=== PATIENT | female | born 1985 | race Caucasian/White ===

== ENCOUNTER 2016-07-19 21:48 | Emergency (ER) | payer BC ==
[2016-07-19 23:43] LABS: ABSOLUTE BASOPHILS # (AUTO) 0.1 10^3/uL (0.0-0.2); ABSOLUTE EOSINOPHILS # (AUTO) 0.8 10^3/uL (0.0-0.6); ABSOLUTE LYMPHOCYTES (AUTO) 3.3 10^3/uL (0.5-4.7); ABSOLUTE MONOCYTES (AUTO) 0.8 10^3/uL (0.1-1.4); BASOPHILS % (AUTO) 0.5 % (0-2); EOSINOPHILS % (AUTO) 6.2 % (0-6); HEMATOCRIT 33.2 % (36.0-47.0); HEMOGLOBIN 11.2 g/dL (12.0-15.5); HGB HCT DIFFERENCE 0.4; LYMPHOCYTES % (AUTO) 25.5 % (13-45); MEAN CORPUSCULAR HEMOGLOBIN 27.5 pg (27.0-33.4); MEAN CORPUSCULAR HGB CONC 33.8 g/dL (32.0-36.0); MEAN CORPUSCULAR VOLUME 81 fl (80-97); RED BLOOD COUNT 4.08 10^6/uL (3.72-5.28); RED CELL DISTRIBUTION WIDTH 14.3 % (11.5-14.0); SEGMENTED NEUTROPHILS % (AUTO) 61.8 % (42-78); WHITE BLOOD COUNT 12.9 10^3/uL (4.0-10.5)
[2016-07-19 23:47] LABS: APPEARANCE,URINE CLEAR; BILIRUBIN,URINE NEGATIVE (NEGATIVE); GLUCOSE, URINE NEGATIVE (NEGATIVE); KETONES,URINE NEGATIVE (NEGATIVE); LEUKOCYTE ESTERASE,URINE NEGATIVE (NEGATIVE); NITRITE,URINE NEGATIVE (NEGATIVE); PROTEIN,URINE NEGATIVE (NEGATIVE); URINE SPECIFIC GRAVITY 1.011; UROBILINOGEN,URINE NEGATIVE mg/dL (<2.0)
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
[2016-07-20 03:50] VITALS: BP 108/72
== END 2016-07-20 03:49 | disposition home or self-care (01) ==
LOC: ER 21:48
DX: O46.91 Antepartum hemorrhage, unspecified, first trimester (principal)
CPT/HCPCS: 99284; 96372; 86900; 86901; 36415; 86850; 84702; 85025; 81001; 76817; 93976; J2790

== ENCOUNTER → 2016-07-22 | Outpatient (CLI) | payer BC | LOC: LAB 10:43 | DX: O46.90 Antepartum hemorrhage, unspecified, unspecified trimester (principal) | CPT/HCPCS: 36415; 84702 ==

== ENCOUNTER → 2016-07-25 | Outpatient (CLI) | payer BC | LOC: OD 09:34 | PROVIDERS: ATTEND Obstetrics & Gynecology | DX: O02.1 Missed abortion (principal) | CPT/HCPCS: 36415; 84702 ==

== ENCOUNTER → 2016-07-27 | Outpatient (CLI) | payer BC | LOC: OD 08:49 | PROVIDERS: ATTEND Obstetrics & Gynecology | DX: O02.1 Missed abortion (principal) | CPT/HCPCS: 36415; 84702 ==

== ENCOUNTER 2017-01-14 21:07 | Emergency (ER) | payer OTHER, BC ==
[2017-01-14] MEDS ORDERED: ACETAMINOPHEN 325 MG TABLET PO ONE (21:55)
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
[2017-01-14 23:47] VITALS: BP 126/60
== END 2017-01-14 23:44 | disposition home or self-care (01) ==
LOC: ER 21:07
DX: O99.89 Other specified diseases and conditions complicating pregnancy, childbirth and the puerperium (principal); M25.532 Pain in left wrist; V49.40XA Driver injured in collision with unspecified motor vehicles in traffic accident, initial encounter; O99.513 Diseases of the respiratory system complicating pregnancy, third trimester; J45.909 Unspecified asthma, uncomplicated; Z3A.00 Weeks of gestation of pregnancy not specified
CPT/HCPCS: 99284

== ENCOUNTER 2017-01-14 23:50 | Outpatient (CLI) | payer OTHER, BC ==
[2017-01-15 00:28] LABS: APPEARANCE,URINE CLEAR; BILIRUBIN,URINE NEGATIVE (NEGATIVE); GLUCOSE, URINE NEGATIVE (NEGATIVE); KETONES,URINE NEGATIVE (NEGATIVE); LEUKOCYTE ESTERASE,URINE NEGATIVE (NEGATIVE); NITRITE,URINE NEGATIVE (NEGATIVE); PROTEIN,URINE NEGATIVE (NEGATIVE); URINE SPECIFIC GRAVITY 1.003; UROBILINOGEN,URINE NEGATIVE mg/dL (<2.0)
[2017-01-15 01:07] LABS: URINE BARBITURATES SCREEN NEGATIVE; URINE METHADONE SCREEN NEGATIVE; URINE OPIATES LOW NEGATIVE; URINE PHENCYCLIDINE SCREEN NEGATIVE
[2017-01-15 02:29] LABS: TOTAL RBC COUNT 2063; VOL OF FETOMATERNAL HEMORRHAGE 0 ML (0)
[2017-01-15 02:30] LABS: TYPE IN FILE? TYPE IN FILE
== END 2017-01-15 02:40 | disposition home or self-care (01) ==
LOC: LC 23:50
PROVIDERS: ATTEND Obstetrics & Gynecology
PROC: 4A1HXCZ Monitoring of Products of Conception, Cardiac Rate, External Approach (ICD-10-PCS; principal; 2017-01-14)
DX: Z36 Encounter for antenatal screening of mother (principal); Z3A.24 24 weeks gestation of pregnancy
CPT/HCPCS: 36415; 80307; 81001; 85460

== ENCOUNTER 2017-04-19 10:52 | Outpatient (CLI) | payer BC ==
[2017-04-19 11:31] LABS: APPEARANCE,URINE CLOUDY; BILIRUBIN,URINE NEGATIVE (NEGATIVE); GLUCOSE, URINE NEGATIVE (NEGATIVE); KETONES,URINE TRACE mg/dL (NEGATIVE); LEUKOCYTE ESTERASE,URINE SMALL (NEGATIVE); NITRITE,URINE NEGATIVE (NEGATIVE); PROTEIN,URINE 100 mg/dL (NEGATIVE); URINE SPECIFIC GRAVITY 1.025; UROBILINOGEN,URINE NEGATIVE mg/dL (<2.0)
[2017-04-19 11:38] LABS: AMNISURE (ROM) NEGATIVE (NEGATIVE)
[2017-04-19 11:48] LABS: URINE BARBITURATES SCREEN NEGATIVE; URINE METHADONE SCREEN NEGATIVE; URINE OPIATES LOW NEGATIVE; URINE PHENCYCLIDINE SCREEN NEGATIVE
--- NOTE | 2017-04-19 11:53 | Non Stress Test Report ---
Non Stress Test Datetime Report Generated by CPN: 04/19/2017 11:53 DEMOGRAPHIC EGA NST: 37.3 INDICATION Indication for Study: Other Indication for Study (NST) Other: Labor Check MONITORING Monitor Explained: Monitor Explained; Test Explained; Patient Verbalized Understanding Time on Monitor: 04/19/2017 11:08 Time off Monitor: 04/19/2017 11:43 NST Duration: 35 NST INTERVENTIONS NST Interventions: PO Hydration; Reposition Patient Physician Notified NST: Dr. Glenn BABY A: [id number] BABY A Movement : Present Contraction Frequency : 0 FHR Baseline : 135 Accelerations : 15X15 Decelerations : None Variability : Moderate 6-25bpm NST Review: Meets Criteria for Reactive NST NST Review and Verified By : TRIPP Boo Results: Reactive NST REPORT Report Trigger: Send Report
== END 2017-04-19 11:59 | disposition home or self-care (01) ==
LOC: LC 10:52
PROVIDERS: ATTEND Obstetrics & Gynecology
PROC: 4A1HXCZ Monitoring of Products of Conception, Cardiac Rate, External Approach (ICD-10-PCS; principal; 2017-04-19)
DX: O47.1 False labor at or after 37 completed weeks of gestation (principal); Z3A.37 37 weeks gestation of pregnancy
CPT/HCPCS: 59025; 80307; 81005; 84112

== ENCOUNTER 2017-04-29 20:52 | Outpatient (CLI) | payer BC ==
[2017-04-29 21:40] LABS: APPEARANCE,URINE CLEAR; BILIRUBIN,URINE NEGATIVE (NEGATIVE); GLUCOSE, URINE NEGATIVE (NEGATIVE); KETONES,URINE NEGATIVE (NEGATIVE); LEUKOCYTE ESTERASE,URINE NEGATIVE (NEGATIVE); NITRITE,URINE NEGATIVE (NEGATIVE); PROTEIN,URINE NEGATIVE (NEGATIVE); URINE SPECIFIC GRAVITY 1.009; UROBILINOGEN,URINE NEGATIVE mg/dL (<2.0)
[2017-04-29 21:45] LABS: AMNISURE (ROM) NEGATIVE (NEGATIVE)
[2017-04-29 21:55] LABS: URINE BARBITURATES SCREEN NEGATIVE; URINE METHADONE SCREEN NEGATIVE; URINE OPIATES LOW NEGATIVE; URINE PHENCYCLIDINE SCREEN NEGATIVE
== END 2017-04-29 22:08 | disposition home or self-care (01) ==
LOC: LC 20:52
PROVIDERS: ATTEND Obstetrics & Gynecology
PROC: 4A1HXCZ Monitoring of Products of Conception, Cardiac Rate, External Approach (ICD-10-PCS; principal; 2017-04-29)
DX: O47.1 False labor at or after 37 completed weeks of gestation (principal); Z3A.38 38 weeks gestation of pregnancy
CPT/HCPCS: 59025; 80307; 81005; 84112

== ENCOUNTER 2017-05-01 04:18 | Inpatient (IN) | payer BC ==
[2017-05-01] MEDS ORDERED: MISOPROSTOL 0.2 MG TABLET ONE (04:29)
[2017-05-01] MEDS ORDERED: OXYTOCIN/NORMAL SALINE 20 UNIT/1,000 ML RTUINJ ONE (04:29)
[2017-05-01] MEDS ORDERED: LIDOCAINE 1% INJ-PF (10 MG/ML) 30 ML SDV ONE (04:29)
[2017-05-01 05:02] LABS: ABSOLUTE EOSINOPHILS # (AUTO) 0.2 10^3/uL (0.0-0.6); ABSOLUTE NEUT (AUTO) 9.6 10^3/uL (1.7-8.2); BASOPHILS % (AUTO) 0.3 % (0-2); EOSINOPHILS % (AUTO) 1.6 % (0-6); HEMOGLOBIN 11.7 g/dL (12.0-15.5); HGB HCT DIFFERENCE 0.1; LYMPHOCYTES % (AUTO) 15.7 % (13-45); MEAN CORPUSCULAR HEMOGLOBIN 27.8 pg (27.0-33.4); MEAN CORPUSCULAR HGB CONC 33.4 g/dL (32.0-36.0); MEAN CORPUSCULAR VOLUME 83 fl (80-97); RED BLOOD COUNT 4.22 10^6/uL (3.72-5.28); RED CELL DISTRIBUTION WIDTH 14.5 % (11.5-14.0); SEGMENTED NEUTROPHILS % (AUTO) 74.4 % (42-78); WHITE BLOOD COUNT 12.9 10^3/uL (4.0-10.5)
[2017-05-01] MEDS ORDERED: RINGERS SOLUTION,LACTATED 1,000 ML IV ONE (05:06)
[2017-05-01] MEDS ORDERED: RINGERS SOLUTION,LACTATED 1,000 ML IV PRN (05:08)
[2017-05-01] MEDS ORDERED: PSEUDOEPHEDRINE HCL 30 MG TABLET PO PRN (05:16)
[2017-05-01] MEDS ORDERED: ACETAMINOPHEN 650 MG SUPP.RECT PR PRN (05:16)
[2017-05-01] MEDS ORDERED: DIBUCAINE 1% OINTMENT 28 GM TP PRN (05:16)
[2017-05-01] MEDS ORDERED: ZOLPIDEM TARTRATE 5 MG TABLET PO PRN (05:16)
[2017-05-01] MEDS ORDERED: OXYTOCIN/NORMAL SALINE 20 UNIT/1,000 ML RTUINJ IV PRN (05:16)
[2017-05-01] MEDS ORDERED: MAGNESIUM HYDROXIDE SUSP 30 ML UDCUP PO PRN (05:16)
[2017-05-01] MEDS ORDERED: PROMETHAZINE HCL INJ 25 MG/1 ML VIAL IV PRN (05:16)
[2017-05-01] MEDS ORDERED: DIPH/PERTUSS(ACELL)/TETANUS VAC/PF 0.5 ML SYR (>=10YO) IM PRN (05:16)
[2017-05-01] MEDS ORDERED: PROMETHAZINE HCL 25 MG TABLET PO PRN (05:16)
[2017-05-01] MEDS ORDERED: GLYCERIN/WITCH HAZEL LEAF 1 EACH MED..PAD TP PRN (05:16)
[2017-05-01] MEDS ORDERED: MEASLES,MUMPS&RUBELLA VACC/PF 0.5 ML VIAL SUBCUT PRN (05:16)
[2017-05-01] MEDS ORDERED: NA PHOS,M-B/NA PHOS,DI-BA (ADULT) 133 ML ENEMA PR PRN (05:16)
[2017-05-01] MEDS ORDERED: BENZOCAINE/MENTHOL AEROSOL SPRAY 56 ML TOP PRN (05:16)
[2017-05-01] MEDS ORDERED: DIPHENHYDRAMINE HCL 25 MG CAPSULE PO PRN (05:16)
[2017-05-01] MEDS ORDERED: ACETAMINOPHEN WITH CODEINE #3 TABLET PO PRN (05:16)
[2017-05-01] MEDS ORDERED: PROMETHAZINE HCL 25 MG SUPP.RECT PR PRN (05:16)
[2017-05-01] MEDS ORDERED: ACETAMINOPHEN WITH CODEINE #3 TABLET ONE ×2 (06:25→06:26)
[2017-05-01] MEDS: ACETAMINOPHEN WITH CODEINE #3 TABLET PO PRN (06:27)
--- NOTE | 2017-05-01 06:49 | Delivery Summary ---
Del Sum A-C Datetime Report Generated by CPN: 05/01/2017 06:48 DELIVERY PERSONNEL DELIVERY PERSONNEL: [id number] Delivery Doctor:: Yamila Jules MD Labor and Delivery Nurse:: Linnea Arellano RNleasing assistant Nurse:: Socorro Scruggs RN Office Lead/RIVET SORTER: Mare Henson, ST MATERNAL INFORMATION Delivery Anesthesia: None Medications After Delivery: Pitocin Bolus-Please Comment Estimated Blood Loss (ml): 250 Maternal Complications: Precipitous Labor (<3hrs) LABOR SUMMARY EDC: 05/07/2017 00:00 No. Babies in Womb: 1 Attempted: No Labor Anesthesia: None LABOR INFORMATION Reason for Induction: Not Applicable Onset of Labor: 05/01/2017 02:00 Complete Dilatation: 05/01/2017 04:45 Oxytocin: N/A Group B Beta Strep: Negative Steroids Given: None Reason Steroids Not Administered: Not Applicable MEMBRANES Membranes Rupture Method: Spontaneous Rupture of Membranes: 05/01/2017 02:30 Length of Rupture (hr): 2.38 Amniotic Fluid Color: Clear Amniotic Fluid Amount: Small Amniotic Fluid Odor: Normal STAGES OF LABOR Stage 1 hr: 2 Stage 1 min: 45 Stage 2 hr: 0 Stage 2 min: 8 VAGINAL DELIVERY Episiotomy: None Laceration #1: Perineal Laceration Extension #1: First Degree Laceration #2: None Laceration #3: None Laceration Repair: Yes Laceration Repair Note: one 3-0 chromic suture Sponge Count Correct: Yes; Vaginal Sweep Performed Sharps Count Correct: Yes CSECTION DELIVERY Primary Indication: N/A Secondary Indication: N/A BABY A INFORMATION Infant Delivery Date/Time: 05/01/2017 04:53 Method of Delivery: Vaginal Born in Route : No : N/A Forceps: N/A Vacuum Extraction: N/A Shoulder Dystocia : No PRESENTATION/POSITION BABY A Presentation: Cephalic Cephalic Presentation: Vertex Vertex Position: Right Occipital Anterior Breech Presentation: N/A PLACENTA INFORMATION BABY A Placenta Method of Delivery: Spontaneous Placenta Status: Delivered SCORES BABY A Heart Rate 1 min: >100 bpm Resp Effort 1 min: Good Cry Reflex Irritability 1 min: Cough or Sneeze or Pulls Away Muscle Tone 1 min: Active Motion Color 1 min: Body [place], Extremities Blue Resuscitation Effort 1 min: Tactile Stimulation SCORE 1 MIN: 9 Heart Rate 5 min: >100 bpm Resp Effort 5 min: Good Cry Reflex Irritability 5 min: Cough or Sneeze or Pulls Away Muscle Tone 5 min: Active Motion Color 5 min: Body [place], Extremities Blue Resuscitation Effort 5 min: Tactile Stimulation SCORE 5 MIN: 9 INFORMATION BABY A Gestational Age at Delivery: 39.1 Gestational Status: Full Term- 39- 40.6 Weeks Outcome : Liveborn Infant Condition : Stable Infant Sex: Male IDENTIFICATION BABY A Infant Verification Date/Time: 05/01/2017 05:29 ID Band Number: [id number] Mother's Name Verified: Yes RN Verifying : Kenton Hogue RN/K. Sheba RN WEIGHT/LENGTH BABY A Birthweight (gm): 3795 Infant Weight (lb): 8 Infant Weight (oz): 6 Length (in): 21.00 Length (cm): 53.34 CORD INFORMATION BABY A No. Cord Vessels: 3 Nuchal Cord : N/A Cord Blood Taken: Yes-For Eval (Mom's Blood Type - or O+) Infant Suction: Mouth; Nose ASSESSMENT BABY A Complications: None Physical Findings at Delivery: Within Normal Limits Infant Respirations: Appears Normal Skin to Skin: Yes Trim Stencil Maker/ALS Called : No Care By: Papi Scruggs RN Transferred To: Remains with Mother SIGNATURES Signature: with User ID: [email or web address]
[2017-05-01 07:54] LABS: APPEARANCE,URINE CLEAR; BILIRUBIN,URINE NEGATIVE (NEGATIVE); GLUCOSE, URINE NEGATIVE (NEGATIVE); KETONES,URINE 20 mg/dL (NEGATIVE); LEUKOCYTE ESTERASE,URINE NEGATIVE (NEGATIVE); NITRITE,URINE NEGATIVE (NEGATIVE); PROTEIN,URINE 100 mg/dL (NEGATIVE); URINE SPECIFIC GRAVITY 1.023; UROBILINOGEN,URINE NEGATIVE mg/dL (<2.0)
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
[2017-05-01] MEDS: IBUPROFEN 800 MG TABLET PO SCH ×3 (07:58→22:35)
[2017-05-01 08:12] LABS: URINE BARBITURATES SCREEN NEGATIVE; URINE METHADONE SCREEN NEGATIVE; URINE PHENCYCLIDINE SCREEN NEGATIVE
[2017-05-01 08:15] LABS: URINE OPIATES LOW UNCONFIRMED POSITIVE
[2017-05-01] MEDS: SENNOSIDES/DOCUSATE 8.6-50 MG 1 EACH TABLET PO SCH (11:45)
[2017-05-01] MEDS: FERROUS SULFATE 325 MG TABLET PO SCH ×2 (11:46→17:51)
[2017-05-01] MEDS: PRENATAL VITAMIN W DHA CAPSULE PO SCH (11:46)
[2017-05-01] MEDS: FAMOTIDINE 20 MG TABLET PO SCH ×2 (11:46→22:35)
[2017-05-01] MEDS: DOCUSATE SODIUM 100 MG CAPSULE PO SCH ×2 (11:46→17:51)
[2017-05-02] MEDS: IBUPROFEN 800 MG TABLET PO SCH ×3 (05:21→21:53)
[2017-05-02 08:10] LABS: HEMATOCRIT 32.3 % (36.0-47.0); HEMOGLOBIN 10.9 g/dL (12.0-15.5); HGB HCT DIFFERENCE 0.4; MEAN CORPUSCULAR HEMOGLOBIN 28.8 pg (27.0-33.4); MEAN CORPUSCULAR HGB CONC 33.8 g/dL (32.0-36.0); MEAN CORPUSCULAR VOLUME 85 fl (80-97); RED BLOOD COUNT 3.79 10^6/uL (3.72-5.28); RED CELL DISTRIBUTION WIDTH 14.4 % (11.5-14.0); WHITE BLOOD COUNT 13.3 10^3/uL (4.0-10.5)
[2017-05-02] MEDS: DOCUSATE SODIUM 100 MG CAPSULE PO SCH ×2 (09:59→18:16)
[2017-05-02] MEDS: SENNOSIDES/DOCUSATE 8.6-50 MG 1 EACH TABLET PO SCH (10:00)
[2017-05-02] MEDS: FERROUS SULFATE 325 MG TABLET PO SCH ×2 (10:00→18:16)
[2017-05-02] MEDS: FAMOTIDINE 20 MG TABLET PO SCH ×2 (10:00→21:53)
[2017-05-02] MEDS: PRENATAL VITAMIN W DHA CAPSULE PO SCH (10:00)
--- NOTE | 2017-05-02 10:09 | PDOC PROGRESS REPORT ---
Subjective-OB Subjective: Post Delivery Day: 31 year old. Denies any needs at this time Physical Exam (OB) Vital Signs: Temp Pulse Resp BP Pulse Ox 97.9 F 79 18 123/81 100 05/02/17 08:30 05/02/17 08:30 05/02/17 08:30 05/02/17 08:30 05/02/17 08:30 Intake & Output 05/01/17 05/02/17 05/03/17 06:59 06:59 06:59 Intake Total 400 Balance 400 Weight 98 kg - General General Appearance: Alert In distress: None - PIH/Pre-Eclampsia DTR's: 2 + Clonus: Negative Headache: Absent Epigastric Pain: No Visual Changes: No - Lochia Lochia Amount: Scant < 10 ml Lochia Color: Rubra/Red - Abdomen Description: Soft, Flat Hernia Present: No Bowel Sounds: Normoactive Flatus Presence: Present Fundal Description: Firm, Midline Fundal Height: u/u - u/2 Objective-Diagnostic Laboratory: 05/02/17 07:10 05/02/17 07:10 WBC 13.3 H RBC 3.79 Hgb 10.9 L Hct 32.3 L MCV 85 MCH 28.8 MCHC 33.8 RDW 14.4 H Plt Count 231 Assessment and Plan(PN) - Time Spent with Patient Time with patient: Less than 15 minutes - Disposition Anticipated Discharge: Home Within: within 24 hours
[2017-05-02] MEDS: ACETAMINOPHEN WITH CODEINE #3 TABLET PO PRN ×2 (12:26→18:15)
[2017-05-03] MEDS: IBUPROFEN 800 MG TABLET PO SCH (06:18)
[2017-05-03] MEDS: SENNOSIDES/DOCUSATE 8.6-50 MG 1 EACH TABLET PO SCH (09:28)
[2017-05-03] MEDS: FAMOTIDINE 20 MG TABLET PO SCH (09:28)
[2017-05-03] MEDS: DOCUSATE SODIUM 100 MG CAPSULE PO SCH (09:28)
[2017-05-03] MEDS: FERROUS SULFATE 325 MG TABLET PO SCH (09:28)
[2017-05-03] MEDS: PRENATAL VITAMIN W DHA CAPSULE PO SCH (09:28)
[2017-05-03 09:53] VITALS: BP 128/73
--- NOTE | 2017-05-03 10:19 | PDOC DISCHARGE SUMMARY ---
Final Diagnosis Discharge Date: 05/03/17 Discharge Data - Discharge Medication Home Medications: Vit/Iron Fum/Folic AC [ Tablet] 1 each PO DAILY 01/15/17 Valacyclovir HCl [Valtrex 500 mg Tablet] 2 tab PO DAILY 04/19/17 Reason(s) for Admission: Onset of Labor Procedures: NST Intrapartum Procedure(s): Spontaneous Vaginal Delivery Complication(s): Laceration-Vaginal Laceration-Degree: 1st - Diagnosis Test Laboratory: Temp Pulse Resp BP Pulse Ox 97.6 F 84 16 128/73 H 99 05/03/17 09:31 05/03/17 09:31 05/03/17 09:31 05/03/17 09:31 05/03/17 09:31 05/01/17 05/01/17 05/02/17 04:44 07:30 07:10 RBC 4.22 3.79 Hgb 11.7 L 10.9 L Hct 35.0 L 32.3 L Urine Opiates Screen UNCONFIRMED POSITIVE - Discharge information/Instructions Discharge Activity: Activity As Tolerated Discharge Diet: Regular Disposition: HOME, SELF-CARE Follow up with: [facility] in: 4
== END 2017-05-03 12:47 | disposition home or self-care (01) | DRG 774 ==
LOC: LC 04:18 → LR 04:32 → 2S 07:45
PROVIDERS: ADMIT Obstetrics & Gynecology; ATTEND Obstetrics & Gynecology
PROC: 10E0XZZ Delivery of Products of Conception, External Approach (ICD-10-PCS; principal; 2017-05-01)
PROC: 0HQ9XZZ Repair Perineum Skin, External Approach (ICD-10-PCS; 2017-05-01)
PROC: 4A1HXCZ Monitoring of Products of Conception, Cardiac Rate, External Approach (ICD-10-PCS; 2017-05-01)
PROC: 3E0234Z Introduction of Serum, Toxoid and Vaccine into Muscle, Percutaneous Approach (ICD-10-PCS; 2017-05-03)
DX: O70.0 First degree perineal laceration during delivery (principal); O98.32 Other infections with a predominantly sexual mode of transmission complicating childbirth; O24.429 Gestational diabetes mellitus in childbirth, unspecified control; A60.00 Herpesviral infection of urogenital system, unspecified; Z79.899 Other long term (current) drug therapy; Z3A.39 39 weeks gestation of pregnancy; O26.893 Other specified pregnancy related conditions, third trimester; Z37.0 Single live birth; Z67.41 Type O blood, Rh negative
CPT/HCPCS: 36415; 80307; 81005; 85025; 85027; 85461; 86592; 86850; 86870; 86900; 86901; J2590; J2790; J3490

== ENCOUNTER 2017-05-03 18:47 | Emergency (ER) | payer BC ==
[2017-05-03 18:59] VITALS: BP 125/91
--- NOTE | 2017-05-03 19:06 | ER Document Report ---
ED Medical Screen (RME) - General Chief Complaint: Vaginal Pain Stated Complaint: VAGINAL PROBLEMS Time Seen by Provider: 05/03/17 19:05 Mode of Arrival: Ambulatory Information source: Patient TRAVEL OUTSIDE OF THE [place] IN LAST 30 DAYS: No - HPI Patient complains to provider of: uterine prolapse Onset: Just prior to arrival - pt is recently post- and feels she has prolapsed her uterus. She has spoken with teradata solution architect DATA MIGRATION LEAD and that person is to meet her in ED - Related Data Allergies/Adverse Reactions: No Known Allergies Allergy (Verified 04/29/17 21:05) Past Medical History - Social History Chew tobacco use (# tins/day): No Frequency of alcohol use: None Drug Abuse: None Pulmonary Medical History: Reports: Hx Asthma - Exercise-induced, Hx Pneumonia Renal/ Medical History: Denies: Hx Peritoneal Dialysis Musculoskeltal Medical History: Reports Hx Musculoskeletal Deformity, Reports Hx Musculoskeletal Trauma Traumatic Medical History: Reports: Hx Fractures - Elbow - Immunizations Hx Diphtheria, Pertussis, Tetanus Vaccination: Yes History of Influenza Vaccine for 02/2017 - 07/2017 Season: Yes Influenza Administration Date for 02/2017 - 07/2017 Season: 02/23/17 Physical Exam - Vital signs Vitals: Temp Pulse Resp BP Pulse Ox 97.9 F 119 H 20 125/91 H 98 05/03/17 18:57 05/03/17 18:57 05/03/17 18:57 05/03/17 18:57 05/03/17 18:57 Course - Vital Signs Vital signs: Temp Pulse Resp BP Pulse Ox 97.9 F 119 H 20 125/91 H 98 05/03/17 18:57 05/03/17 18:57 05/03/17 18:57 05/03/17 18:57 05/03/17 18:57
--- NOTE | 2017-05-03 20:03 | ER Document Report ---
ED GI/ - General Chief Complaint: Vaginal Pain Stated Complaint: VAGINAL PROBLEMS Time Seen by Provider: 05/03/17 19:05 Mode of Arrival: Ambulatory Notes: patient is a 48 hour 31-year-old female who presents emergency department with chief complaint of uterine prolapse After referral by her 911 DISPATCHER. States that she has been having difficulty with constipation since delivery and is been straining to have bowel movements. Has been educated to take stool softeners, fiber and Metamucil at home but she has not been compliant. TRAVEL OUTSIDE OF THE [place] IN LAST 30 DAYS: No - Related Data Allergies/Adverse Reactions: No Known Allergies Allergy (Verified 04/29/17 21:05) Past Medical History - General Information source: Patient - Social History Smoking Status: Current Some Day Smoker Chew tobacco use (# tins/day): No Frequency of alcohol use: None Drug Abuse: None Family History: Arthritis, CAD, DM, Hyperlipidemia, Hypertension, Malignancy Patient has suicidal ideation: No Patient has homicidal ideation: No Pulmonary Medical History: Reports: Hx Asthma - Exercise-induced, Hx Pneumonia Renal/ Medical History: Denies: Hx Peritoneal Dialysis Musculoskeltal Medical History: Reports Hx Musculoskeletal Deformity, Reports Hx Musculoskeletal Trauma Traumatic Medical History: Reports: Hx Fractures - Elbow - Immunizations Hx Diphtheria, Pertussis, Tetanus Vaccination: Yes Physical Exam - Vital signs Vitals: Temp Pulse Resp BP Pulse Ox 97.9 F 119 H 20 125/91 H 98 05/03/17 18:57 05/03/17 18:57 05/03/17 18:57 05/03/17 18:57 05/03/17 18:57 - Notes Notes: PHYSICAL EXAM GENERAL: Alert, interacts well. LUNGS: Clear to auscultation bilaterally, no wheezes, rales, or rhonchi. No respiratory distress. HEART: Regular rate and rhythm. No murmurs, gallops, or rubs. ABDOMEN: Soft, nondistended, nontender. No guarding, rebound, or rigidity.. Bowel sounds present in all 4 quadrants. NEUROLOGICAL: Alert and oriented x4. Normal speech. PSYCH: Normal affect, normal mood. SKIN: Warm, dry, normal turgor. No rashes or lesions noted. Course - Re-evaluation Re-evalutation: 05/03/17 20:[address] Kingston has been consulted and evaluated the patient at the bedside. She is stable for discharge and to follow up with OBGYN this week to schedule on friday - Vital Signs Vital signs: Temp Pulse Resp BP Pulse Ox 97.9 F 119 H 20 125/91 H 98 05/03/17 18:57 05/03/17 18:57 05/03/17 18:57 05/03/17 18:57 05/03/17 18:57 Discharge - Discharge Clinical Impression: Uterine prolapse Condition: Good Disposition: HOME, SELF-CARE Additional Instructions: -Your evaluated in the emergency department today for uterine prolapse. This is likely due to straining when trying have a bowel movement. It is indicated to start taking stool softeners such as Colace 100 mg twice a day as well as Metamucil and fiber in your diet to help soften your stool. -Please call their office on Friday to schedule a follow up as directed Referrals: [facility] [Provider Group] - Follow up in 3-5 days
--- NOTE | 2017-05-03 20:26 | PDOC CONSULTATION ---
Consultation Consult Date: 05/03/17 Consult reason:: Uterine prolapse History of Present Illness Patient complains of: Uterine prolapse History of Present Illness: DARCY RIVERA is a 31 year old female [id number] presents to ER with c/o possible uterine prolapse. Pt is PPD#2 of 8lb male . She was discharged yesterday. She reports she felt a bulge after straining to have a BM. She took a picture of the bulge. She is and not taking any meds at home. She spoke to the [place] supervisor bus transportation manager who advised pt to come to ER. Pt denies significant vaginal bleeding. Denies pain or any other symptoms. Past Medical History Obstetrical History: none - x 4 6 Male Delivery: Spontaneous Vaginal Delivery Pulmonary Medical History: Reports: Asthma - Exercise-induced, Pneumonia Social History Smoking Status: Current Some Day Smoker Family History Family History: Arthritis, CAD, DM, Hyperlipidemia, Hypertension, Malignancy Parental Family History Reviewed: No Children Family History Reviewed: No Sibling(s) Family History Reviewed.: No Medication/Allergy Home Medications: Vit/Iron Fum/Folic AC [ Tablet] 1 each PO DAILY 01/15/17 Valacyclovir HCl [Valtrex 500 mg Tablet] 2 tab PO DAILY 04/19/17 Allergies/Adverse Reactions: No Known Allergies Allergy (Verified 04/29/17 21:05) Physical Exam - Physical Exam Vital Signs: Temp Pulse Resp BP Pulse Ox 97.9 F 119 H 20 125/91 H 98 05/03/17 18:57 05/03/17 18:57 05/03/17 18:57 05/03/17 18:57 05/03/17 18:57 Intake & Output 05/02/17 05/03/17 05/04/17 06:59 06:59 06:59 Weight 88.4 kg General appearance: PRESENT: no acute distress, cooperative, well-developed, well-nourished, other - Pt up in room Head exam: PRESENT: atraumatic Rectal exam: PRESENT: hemorrhoids Gentrourinary exam: PRESENT: other - Normal external genitalia. Spec exam: cervix visualized, normal vaginal rugae. Digital exam: cervix 4cm, fundus firm Neurological exam: PRESENT: alert, oriented to person, oriented to place, oriented to time, oriented to situation Psychiatric exam: PRESENT: appropriate affect - Gynecological Exam Labia: normal Urethra: normal Introitus: normal Perineum: normal Vagina: normal Cervix: other - normal appearance for day 2 Cervix: other - 4cm ilated Uterus: other - firm Assessment & Plan - Diagnosis (1) Uterine prolapse Is this a current diagnosis for this admission?: Yes Plan: Uterus in correct position at this time. Pt advised to maintain bedrest and avoid prolonged standing, heavy lifting, straining to have BM. Continue to help with involution. Call office in 2 days for f/u appointment. (2) Constipation Is this a current diagnosis for this admission?: Yes Plan: Colace bid. Metamucil at least 3 times/day. Increase intake of fiber via fruits/veggies. Pt advised to not strain with BMs. If she is unable to have a BM, can try enema or suppository. - Time Time Spent: 30 to 50 Minutes Critical Time spent with patient: Less than 15 minutes Anticipated discharge: Home Within: within 24 hours
[2017-05-04] MEDS ORDERED: IBUPROFEN 800 MG TABLET PO SCH (22:00)
[2017-05-04] MEDS ORDERED: MEASLES,MUMPS&RUBELLA VACC/PF 0.5 ML VIAL SUBCUT PRN (22:11)
[2017-05-04] MEDS ORDERED: DIBUCAINE 1% OINTMENT 28 GM TP PRN (22:11)
[2017-05-04] MEDS ORDERED: ZOLPIDEM TARTRATE 5 MG TABLET PO PRN (22:11)
[2017-05-04] MEDS ORDERED: MAGNESIUM HYDROXIDE SUSP 30 ML UDCUP PO PRN (22:11)
[2017-05-04] MEDS ORDERED: ACETAMINOPHEN 650 MG SUPP.RECT PR PRN (22:11)
[2017-05-04] MEDS ORDERED: PROMETHAZINE HCL INJ 25 MG/1 ML VIAL IV PRN (22:11)
[2017-05-04] MEDS ORDERED: PSEUDOEPHEDRINE HCL 30 MG TABLET PO PRN (22:11)
[2017-05-04] MEDS ORDERED: PROMETHAZINE HCL 25 MG SUPP.RECT PR PRN (22:11)
[2017-05-04] MEDS ORDERED: GLYCERIN/WITCH HAZEL LEAF 1 EACH MED..PAD TP PRN (22:11)
[2017-05-04] MEDS ORDERED: PROMETHAZINE HCL 25 MG TABLET PO PRN (22:11)
[2017-05-04] MEDS ORDERED: DIPHENHYDRAMINE HCL 25 MG CAPSULE PO PRN (22:11)
[2017-05-04] MEDS ORDERED: BENZOCAINE/MENTHOL AEROSOL SPRAY 56 ML TOP PRN (22:11)
[2017-05-04] MEDS ORDERED: DIPH/PERTUSS(ACELL)/TETANUS VAC/PF 0.5 ML SYR (>=10YO) IM PRN (22:11)
[2017-05-04] MEDS ORDERED: NA PHOS,M-B/NA PHOS,DI-BA (ADULT) 133 ML ENEMA PR PRN (22:11)
[2017-05-04] MEDS ORDERED: ACETAMINOPHEN WITH CODEINE #3 TABLET PO PRN (22:11)
[2017-05-04] MEDS ORDERED: OXYTOCIN/NORMAL SALINE 20 UNIT/1,000 ML RTUINJ IV PRN (22:11)
[2017-05-05] MEDS ORDERED: FERROUS SULFATE 325 MG TABLET PO SCH (10:00)
[2017-05-05] MEDS ORDERED: DOCUSATE SODIUM 100 MG CAPSULE PO SCH (10:00)
[2017-05-05] MEDS ORDERED: PRENATAL VITAMIN W DHA CAPSULE PO SCH (10:00)
[2017-05-05] MEDS ORDERED: FAMOTIDINE 20 MG TABLET PO SCH (10:00)
[2017-05-05] MEDS ORDERED: SENNOSIDES/DOCUSATE 8.6-50 MG 1 EACH TABLET PO SCH (10:00)
== END 2017-05-03 20:36 | disposition home or self-care (01) ==
LOC: ER 18:47
DX: O90.89 Other complications of the puerperium, not elsewhere classified (principal); N81.4 Uterovaginal prolapse, unspecified; O99.63 Diseases of the digestive system complicating the puerperium; K59.00 Constipation, unspecified; T47.4X6A Underdosing of other laxatives, initial encounter; Z91.14 Patient's other noncompliance with medication regimen; O99.53 Diseases of the respiratory system complicating the puerperium; J45.909 Unspecified asthma, uncomplicated; O99.335 Smoking (tobacco) complicating the puerperium
CPT/HCPCS: 99283